=== PATIENT | male | born 1965 | race Caucasian/White ===

== ENCOUNTER 2017-09-27 12:46 | Emergency (ER) ==
[2017-09-27 12:52] VITALS: BP 159/95; TEMP 97; BMI 25.8
[2017-09-27] MEDS ORDERED: ZOFRAN 4 MG/2 ML IVP STA ×2 (13:21→21:04)
[2017-09-27] MEDS ORDERED: PEPCID IVP STA (13:21)
[2017-09-27] MEDS ORDERED: DILAUDID 2 MG/ML SYRINGE IVP STA ×3 (13:22→21:04)
[2017-09-27] MEDS ORDERED: ROCEPHIN 1 GM in SODIUM CHLORIDE 50 ML IV STA (13:22)
--- NOTE | 2017-09-27 13:23 | ED.PDOC ---
General ED Provider: Dr. FRANCES SMITH Chief Complaint: Abdominal Pain Stated Complaint: States is traveling from [place] back home to [place] and was spending night in [place]. This morning became very nauseated and developed abdominal pain and multiple episodes of vomiting. Traveled to [facility] for visit with daughter. Became ill there and under went eval for Gastric emptying determining reduced emptying time of 17-20 %. Then developed acute pain and diagnosed with appendicitis and underwent emergency appendectomy 2 weeks ago. Left for home in [facility] yesterday. Upon arrival here patient was was notably pale, grabbing abdomen and in moderate distress. Time Seen by Physician: 13:10 Mode of Arrival: Wheelchair Information Source: Patient, Family Exam Limitations: Clinical condition Nursing and Triage Documentation Reviewed and Agree: Yes Does patient meet sepsis criteria?: No System Inflammatory Response Syndrome: Not Applicable Sepsis Protocol: For patient's 13 years and over: Temp is 96.8 and below OR 101 and greater Pulse >90 BPM Resp >20/minute Acutely Altered Mental Status Are patient's symptoms suggestive of a new infection, such as: -Pneumonia -Skin, Soft Tissue -Endocarditis -UTI -Bone, Joint Infection -Implantable Device -Acute Abdominal Infection -Wound Infection -Meningitis -Blood Stream Catheter Infection -Unknown GI Complaint Exam - Abdominal Pain Complaint/Exam Onset: Sudden Symptoms Are: Still present Timing: Constant (with intermittent worsening) Initial Severity: Severe Current Severity: Moderate Location of Pain: Diffuse, Epigastric (into bilat LQ) Character: Reports: Aching, Cramping Aggravating: Reports: None Alleviating: Reports: Rest, Position Associated Signs and Symptoms: Reports: Back pain, Decreased urine output, Nausea, Vomiting Related History: Reports: Similar episode AAA Risk Factors: Reports: None Cardiac Risk Factors: Reports: None Testicular Torsion Risk Factors: Reports: None Surgical Obstruction Risk Factors: Reports: None Related Surgical History: Reports: Appendectomy Differential Diagnoses: Bowel Obstruction, Pancreatitis, Renal Colic, UTI Quality Indicator For Non-Traumatic Chest Pain/Syncope: EKG Performed Review of Systems - Review Of Systems Constitutional: Reports: Chills Eyes: Reports: No symptoms Ears, Nose, Mouth, Throat: Reports: No symptoms Respiratory: Reports: No symptoms Cardiac: Reports: No symptoms GI: Reports: Nausea, Vomiting : Reports: No symptoms Musculoskeletal: Reports: No symptoms Skin: Reports: No symptoms Neurological: Reports: No symptoms Endocrine: Reports: No symptoms Hematologic/Lymphatic: Reports: No symptoms All Other Systems: Reviewed and Negative Past Medical History - Past Medical History Previously Healthy: No Endocrine: Reports: DM 2 (Diagnosed in 2012. Approximately 75 # weight loss. Takes Levimir 35 units bid and Humalog 5 U AC plus sliding scale) Cardiovascular: Reports: None Respiratory: Reports: None Hematological: Reports: None Gastrointestinal: Reports: Pancreatitis (Dx recently), Other (Recent appendicitis and appendectomy plus hernia repair ) Genitourinary: Reports: None Neuro/Psych: Reports: None Musculoskeletal: Reports: None Cancer: Reports: None - Surgical History General Surgical History: Reports: Appendectomy - Family History Family History: Reports: Unknown - Social History Smoking Status: Never smoker Hx Substance Use: No Alcohol Screening: None Physical Exam - Physical Exam Appearance: Ill-appearing, Well-nourished, Thin Ill-appearing: Moderate Pain Distress: Severe Eyes: SAVAGE, EOMI, Conjunctiva clear (no sclera icterus), Right pupil size, Left pupil size (equal) ENT: Ears normal, Nose normal, Oropharynx normal Respiratory: Airway patent, Breath sounds clear, Breath sounds equal, Respirations nonlabored Cardiovascular: RRR, Pulses normal, No rub, No murmur GI/: Soft, No masses, No Organomegaly, Tender (no guarding or rebound), Bowel sounds hypoactive Musculoskeletal: Normal strength, ROM intact, No edema, No calf tenderness Skin: Warm, Dry, Normal color Neurological: Sensation intact, Motor intact, Reflexes intact, Cranial nerves intact, Alert, Oriented Psychiatric: Affect appropriate, Mood appropriate Interpretation - Radiology Interpretation Radiology Interpretation By: Radiologist Exam Interpreted: CT Scan Xray Comments: Findings reviewed Re-Evaluation - Re-Evaluation Time of Re-Evaluation: 19:00 Status: Improved Vital Signs Stable: Yes Lungs: Clear Skin: Warm and Dry Neuro: Alert and Oriented X3 CV: RRR Critical Care Note - Critical Care Note Total Time (mins): 180 Course - Course Hematology/Chemistry: 09/27/17 13:30 09/27/17 18:55 Orders, Labs, Meds: Lab Review 09/27/17 09/27/17 09/27/17 13:30 13:30 13:40 WBC 8.35 RBC 4.79 Hgb 16.0 Hct 43.4 MCV 90.6 MCH 33.4 H MCHC 36.9 H RDW Coeff of Casey 12.7 Plt Count 199 Immature Gran % (Auto) 0.4 Neut % (Auto) 69.5 Lymph % (Auto) 20.2 [place] % (Auto) 6.9 Eos % (Auto) 2.4 Baso % (Auto) 0.6 Immature Gran # (Auto) 0.0 Neut # (Auto) 5.8 Lymph # (Auto) 1.7 [place] # (Auto) 0.6 Eos # (Auto) 0.2 Baso # (Auto) 0.1 Puncture Site O2 Saturation ABG pH ABG pCO2 ABG pO2 ABG HCO3 ABG Total CO2 ABG Base Excess Jose Antonio Test FiO2 % Sodium 134 L Potassium 3.9 Chloride 102 Carbon Dioxide 19 L Anion Gap 16.9 BUN 9 Creatinine 0.98 Estimated GFR (MDRD) 80.00 BUN/Creatinine Ratio 9.18 Glucose 360 H Lactic Acid Calcium 9.5 Magnesium 2.1 Total Bilirubin 1.1 AST 23 ALT 39 Alkaline Phosphatase 113 Total Protein 7.8 Albumin 3.7 Globulin 4.1 Albumin/Globulin Ratio 0.90 Amylase 43 Lipase 17 Procalcitonin < 0.05 09/27/17 09/27/17 09/27/17 13:40 15:59 18:45 WBC RBC Hgb Hct MCV MCH MCHC RDW Coeff of Casey Plt Count Immature Gran % (Auto) Neut % (Auto) Lymph % (Auto) [place] % (Auto) Eos % (Auto) Baso % (Auto) Immature Gran # (Auto) Neut # (Auto) Lymph # (Auto) [place] # (Auto) Eos # (Auto) Baso # (Auto) Puncture Site Rrad Rr O2 Saturation 95.0 93.0 L ABG pH 7.424 7.375 ABG pCO2 31.9 L 35.7 ABG pO2 72.0 L 69.0 L ABG HCO3 20.9 L 20.9 L ABG Total CO2 22 22 ABG Base Excess -4 L -4 L Jose Antonio Test + + FiO2 % 21.0 21.0 Sodium Potassium Chloride Carbon Dioxide Anion Gap BUN Creatinine Estimated GFR (MDRD) BUN/Creatinine Ratio Glucose Lactic Acid 28.1 H Calcium Magnesium Total Bilirubin AST ALT Alkaline Phosphatase Total Protein Albumin Globulin Albumin/Globulin Ratio Amylase Lipase Procalcitonin 09/27/17 09/27/17 18:55 18:55 WBC RBC Hgb Hct MCV MCH MCHC RDW Coeff of Casey Plt Count Immature Gran % (Auto) Neut % (Auto) Lymph % (Auto) [place] % (Auto) Eos % (Auto) Baso % (Auto) Immature Gran # (Auto) Neut # (Auto) Lymph # (Auto) [place] # (Auto) Eos # (Auto) Baso # (Auto) Puncture Site O2 Saturation ABG pH ABG pCO2 ABG pO2 ABG HCO3 ABG Total CO2 ABG Base Excess Jose Antonio Test FiO2 % Sodium 136 Potassium 3.9 Chloride 106 Carbon Dioxide 20 L Anion Gap 13.9 BUN 8 Creatinine 0.76 Estimated GFR (MDRD) 107.00 BUN/Creatinine Ratio 10.52 Glucose 194 H D Lactic Acid 15.3 D Calcium 8.5 Magnesium Total Bilirubin AST ALT Alkaline Phosphatase Total Protein Albumin Globulin Albumin/Globulin Ratio Amylase Lipase Procalcitonin Orders Category Date Time Status ABG DRAW REQUEST Stat CARDIO 09/27/17 16:00 Completed ABG DRAW REQUEST Stat CARDIO 09/27/17 18:45 Completed EKG-(ED ONLY) Stat CARDIO 09/27/17 13:19 Completed NPO REMINDER: IMAGING ONCE CARE 09/27/17 14:30 Completed IV [ED IV/MEDIPORT/POWERPORT] .ONCE EMERGENCY 09/27/17 13:21 Active ABG Stat LAB 09/27/17 15:59 Completed ABG Stat LAB 09/27/17 18:45 Completed AMYLASE Stat LAB 09/27/17 13:30 Completed BLOOD CULTURE (ED ONLY) Stat LAB 09/27/17 13:40 Completed BMP [BASIC METABOLIC PANEL] Stat LAB 09/27/17 18:55 Completed CBC W/ AUTO DIFF Stat LAB 09/27/17 13:30 Completed CMP [COMPREHENSIVE METABOLIC PANEL] Stat LAB 09/27/17 13:30 Completed LACTIC ACID Stat LAB 09/27/17 13:40 Completed LACTIC ACID Stat LAB 09/27/17 18:55 Completed LIPASE Stat LAB 09/27/17 13:30 Completed MAGNESIUM Stat LAB 09/27/17 13:30 Completed PROCALCITONIN Stat LAB 09/27/17 13:40 Completed 0.9 % Sodium Chloride [Saline Flush] MEDS 09/27/17 13:20 Discontinued 1 syr IVF PRN PRN Ceftriaxone Sodium [Rocephin] MEDS 09/27/17 13:30 Discontinued 1 gm .ROUTE .STK-MED ONE Ceftriaxone Sodium [Rocephin] 1 gm MEDS 09/27/17 13:22 Discontinued 0.9 % Sodium Chloride [Sodium Chloride] 50 ml IV ONCE Famotidine Inj [Pepcid] MEDS 09/27/17 13:21 Discontinued 20 mg IVP ONCE STA Hydromorphone HCl/Pf [Dilaudid 2 mg/ml Syringe] MEDS 09/27/17 13:22 Discontinued 2 mg IVP ONCE STA Hydromorphone HCl/Pf [Dilaudid 2 mg/ml Syringe] MEDS 09/27/17 16:54 Discontinued 2 mg IVP ONCE STA Hydromorphone HCl/Pf [Dilaudid 2 mg/ml Syringe] MEDS 09/27/17 21:04 Discontinued 2 mg IVP ONCE STA Ondansetron HCl/Pf [Zofran 4 mg/2 ml] MEDS 09/27/17 13:21 Discontinued 4 mg IVP ONCE STA Ondansetron HCl/Pf [Zofran 4 mg/2 ml] MEDS 09/27/17 21:04 Discontinued 4 mg IVP ONCE STA Pantoprazole Sodium [Protonix IV] MEDS 09/27/17 16:54 Discontinued 40 mg IVP ONCE STA Promethazine HCl [Phenergan 25 mg/ml Vial] MEDS 09/27/17 16:57 Discontinued 25 mg .ROUTE .STK-MED ONE Promethazine HCl [Phenergan 25 mg/ml Vial] 25 mg MED 09/27/17 16:53 Discontinued 0.9 % Sodium Chloride [Sodium Chloride] 50 ml IV ONCE Sodium Chloride 0.9% [Sodium Chloride] 1,000 ml MEDS 09/27/17 15:59 Discontinued IV BOLUS Sodium Chloride 0.9% [Sodium Chloride] 1,000 ml MEDS 09/27/17 16:50 Discontinued IV BOLUS Sodium Chloride 0.9% [Sodium Chloride] 1,000 ml MEDS 09/27/17 16:52 Discontinued IV BOLUS Sodium Chloride 0.9% [Sodium Chloride] 500 ml MEDS 09/27/17 21:07 Discontinued IV 50 mls/hr CT ABDOMEN/PELVIS W/WO CONTRAS Stat RADS 09/27/17 14:29 Completed Medications Discontinued Medications Generic Name Dose Route Start Last Admin Trade Name Freq PRN Reason Stop Dose Admin Famotidine 20 mg 09/27/17 13:21 09/27/17 13:37 Pepcid IVP 09/27/17 13:22 20 mg ONCE STA Administration Hydromorphone HCl 2 mg 09/27/17 13:22 09/27/17 13:36 Dilaudid 2 Mg/Ml Syringe IVP 09/27/17 13:23 2 mg ONCE STA Administration Hydromorphone HCl 2 mg 09/27/17 16:54 09/27/17 17:04 Dilaudid 2 Mg/Ml Syringe IVP 09/27/17 16:55 2 mg ONCE STA Administration Hydromorphone HCl 2 mg 09/27/17 21:04 09/27/17 21:14 Dilaudid 2 Mg/Ml Syringe IVP 09/27/17 21:05 2 mg ONCE STA Administration Ceftriaxone Sodium 1 gm/ 50 mls @ 75 mls/hr 09/27/17 13:22 09/27/17 13:49 Sodium Chloride IV 09/27/17 14:01 75 mls/hr ONCE STA Administration Sodium Chloride 1,000 mls @ 1,000 mls/hr 09/27/17 15:59 09/27/17 16:02 Sodium Chloride IV 09/27/17 16:58 1,000 mls/hr BOLUS STA Administration Sodium Chloride 1,000 mls @ 500 mls/hr 09/27/17 16:50 09/27/17 16:57 Sodium Chloride IV 09/27/17 18:49 Not Given BOLUS STA Sodium Chloride 1,000 mls @ 250 mls/hr 09/27/17 16:52 09/27/17 17:16 Sodium Chloride IV 09/27/17 19:58 250 mls/hr BOLUS STA Administration Promethazine HCl 25 mg/ Sodium 51 mls @ 75 mls/hr 09/27/17 16:53 09/27/17 17: 07 Chloride IV 09/27/17 17:33 75 mls/hr ONCE STA Administration Sodium Chloride 500 mls @ 50 mls/hr 09/27/17 21:07 09/27/17 21:14 Sodium Chloride IV 09/28/17 07:06 50 mls/hr .Q10H STA Administration Ondansetron HCl 4 mg 09/27/17 13:21 09/27/17 13:35 Zofran 4 Mg/2 Ml IVP 09/27/17 13:22 4 mg ONCE STA Administration Ondansetron HCl 4 mg 09/27/17 21:04 09/27/17 21:14 Zofran 4 Mg/2 Ml IVP 09/27/17 21:05 4 mg ONCE STA Administration Pantoprazole Sodium 40 mg 09/27/17 16:54 09/27/17 17:05 Protonix Iv IVP 09/27/17 16:55 40 mg ONCE STA Administration Sodium Chloride 1 syr 09/27/17 13:20 09/27/17 13:38 Saline Flush IVF 1 syr PRN PRN Administration To flush IV Vital Signs: Temp Pulse Resp BP Pulse Ox 09/27/17 12:48 97.0 F L 105 H 18 159/95 H 96 Departure - Departure Time of Disposition: 19:20 Disposition: TSF SHORT-TRM HOSP Discharge Problem: Abdominal pain in male, Vomiting (bilious) following gastrointestinal surgery, Diabetes type 2, uncontrolled Condition: Fair Pt referred to PMD for follow-up: Yes (Seek care when back home) IPMP verified?: No Additional Instructions: Sending pt to [facility] admit to service of Dr Lizama; Hospitalist Dr Rojas consulting for [facility] Allergies/Adverse Reactions: Allergies No Known Allergies Allergy (Verified 09/27/17 12:52) Home Medications: Ambulatory Orders Atorvastatin Calcium [Lipitor] 40 mg PO DAILY 09/27/17 Duloxetine HCl [Cymbalta] 120 mg PO DAILY 09/27/17 Insulin Detemir [Levemir] 35 unit SUBCUT BEDTIME 09/27/17 Insulin Lispro [Humalog] See Protocol SUBCUT TID 09/27/17 Lisinopril [Zestril] 5 mg PO DAILY 09/27/17 Metoclopramide HCl [Reglan] 10 mg PO ACHS 09/27/17 Metoprolol Succinate [Toprol Xl] 12.5 mg PO BID 09/27/17 Disposition Discussed With: Patient, Family Additional Information: discussed with [facility] Hospitalist ; stated he is uncomfortable accepting patient due to elevated lactic acid level and fear patient my have a vascular surgical problem-no vascular surgeon available. Surgeon contacted who accepted but hospitalist would not accept Contact [facility] Hospitalist and surgeon who accepted patient Explained to patient and his results of call and plan of transfer Lab updated revealed improved/decreased lactic acid levels
[2017-09-27] MEDS ORDERED: ROCEPHIN ONE (13:30)
--- NOTE | 2017-09-27 15:21 | CT ---
Exam: CT scan of the abdomen pelvis without and with IV contrast. Date: 09/27/2017. Comparison: None. HISTORY: Abdominal pain. Recent appendectomy. TECHNIQUE: Helical scan of the abdomen pelvis was performed without and with intravenous contrast en janet. FINDINGS: There is mild atelectasis in the lung bases bilaterally. Mild degenerative changes are se en in the lumbar spine. The bony pelvis is within normal limits. The spleen and liver have a normal uniform enhancement. A cholecystectomy is noted. The stomach is normal. There are pancreatic calcifications but no ductal dilatation. The adrenal glands are normal . The kidneys have a normal enhancement morphology. No calculi or hydronephrosis is seen. No retro peritoneal adenopathy is present. The aorta does not exceed 3 cm. The small bowel is normal. And a ppendectomy is noted without inflammatory changes. The colon, pelvic sidewall and bladder are normal . There is no free pelvic fluid. The prostate, rectum inguinal regions are normal. Impression: No acute findings in the abdomen or pelvis. Appendectomy and cholecystectomy.
[2017-09-27] MEDS ORDERED: SODIUM CHLORIDE 1,000 ML IV STA ×5 (15:49→16:52)
[2017-09-27] MEDS ORDERED: PHENERGAN 25 MG/ML VIAL 25 MG in SODIUM CHLORIDE 50 ML IV STA (16:53)
[2017-09-27] MEDS ORDERED: PROTONIX IV IVP STA (16:54)
[2017-09-27] MEDS ORDERED: PHENERGAN 25 MG/ML VIAL ONE (16:57)
[2017-09-27] MEDS ORDERED: GI COCKTAIL PO STA (20:52)
[2017-09-27] MEDS ORDERED: SODIUM CHLORIDE 500 ML IV STA (21:07)
--- NOTE | 2017-10-08 11:22 | ER ---
DATE OF SERVICE: 09/27/17 SUBJECTIVE: This 52-year-old male patient was in the emergency room around 1 p.m. this afternoon with complaints of abdominal pain. He states he had been traveling home to [place] from [place] when he developed severe abdominal pain, nausea and vomiting this morning after he was leaving his hotel in [facility] where he and his spent the night last night. They had went to [place], [place] to visit their daughter and son-in-law. The patient has a history of diabetes mellitus Type 2, insulin dependent, which had been very brittle and at one time, hemoglobin A1C was 14; most recently it was 11. The patient has lost approximately 75 lbs since the diagnosis in 2012. He states he has also been diagnosed with diabetic gastroparesis and in fact while he was in [place], developed exacerbation of this condition and underwent GI workup and was told gastric emptying was reduced to 17 to 20%. The patient, while he was in [place], developed acute abdominal pain and was diagnosed with appendicitis and underwent laparoscopic appendectomy approximately 2 weeks ago. In the emergency room, his initial appearance revealed him appearing to be fairly ill. He was in moderately severe distress due to the pain. Chest was clear. Heart rate regular rhythm. Abdomen was soft with no particular areas of tenderness but no guarding or rebound tenderness. Bowel sounds were hypoactive. Diagnostic laboratory studies were obtained which were listed on the hospital chart. IMPRESSION: 1. Acute abdominal pain. 2. Refractory nausea and vomiting 3. Diabetic gastroparesis 4. Recent appendectomy 5. Type 2 diabetes mellitus uncontrolled PLAN: Original diagnostic studies were obtained. Findings were noted. Because of the persistent nature of his nausea despite giving IV fluids and antiemetics, additional fluids were ordered after the initial 1000 cc's were infused. Serum lactic acid level was markedly elevated to 28.1, glucose was elevated at 360. Procalcitonin level was normal. I felt the patient should be transferred for admission and continued observation and treatment. I contacted Dr. Maxwell, the hospitalist at [facility] and communicated that he was concerned about the lactic acid level being elevated and the potential underlying causative factors. I discussed the case with the surgeon, Dr. Baldwin who stated that he would be happy to see the patient in consult if the patient was transferred. Dr. Maxwell stated that he was concerned because there was no access to vascular surgery should this patient require. I explained the possibility that the lactic acid elevation was due to the patient's dehydration and vomiting. He recommended that we transfer the patient to another facility. Repeat laboratory studies was conducted at 1855 hours and at that point the patient's electrolytes were normal. c02 had improved to 20. Glucose was decreased to 194 and the lactic acid had decreased to 15.3. Repeat blood gases were noted as well. I spoke to the hospitalist and surgeon at [facility] who agreed to accept the patient in transfer and at this point, the patient is waiting on transportation to [facility] for admission there. I explained the findings to the patient and his . They are agreeable to the transfer. At discharge the 02 sat was noted to be 97% on 21% FI02. MTDD
== END 2017-09-27 21:35 | disposition short-term general hospital (02) ==
LOC: ED 12:46
DX: R10.9 Unspecified abdominal pain (principal); R11.2 Nausea with vomiting, unspecified; E11.65 Type 2 diabetes mellitus with hyperglycemia; R74.0 Nonspecific elevation of levels of transaminase and lactic acid dehydrogenase [LDH]; Z98.890 Other specified postprocedural states; Z90.89 Acquired absence of other organs; Z79.899 Other long term (current) drug therapy
CPT/HCPCS: 36415; 80048; 80053; 82150; 82803; 83605; 83690; 83735; 84145; 85025; 87040; 93005; 93010; 96361; 96365; 96366; 96375; 96376; 99285

== ENCOUNTER 2017-09-27 22:01 | Outpatient (CLI) ==
[2017-09-27 12:52] VITALS: BMI 25.8
== END 2017-09-27 22:30 | disposition short-term general hospital (02) ==
LOC: AMBL 22:01
PROVIDERS: ATTEND Emergency Medicine
DX: R10.0 Acute abdomen (principal)